=== PATIENT | male | born 1990 | race American Indian/Alaskan Native ===

== ENCOUNTER 2017-06-14 19:29 | Emergency (ER) | payer OTHER ==
[2017-06-14] MEDS ORDERED: Albuterol 6.7 GM Inhaler INH ONE ×2 (19:30→21:33)
[2017-06-14 20:01] VITALS: BP 135/89
--- NOTE | 2017-06-14 21:33 | EDM.PDOC ---
ED HPI GENERAL MEDICAL PROBLEM - General Chief Complaint: Respiratory Problem Stated Complaint: COLD [id number] Time Seen by Provider: 06/14/17 21:26 Source of Information: Reports: Patient History Limitations: Reports: No Limitations - History of Present Illness INITIAL COMMENTS - FREE TEXT/NARRATIVE: Cold symptoms since Thursday with congestion cough and sore throat. No known fever , Took Muccinex last lucas, has not used any other medications, including tylenol or ibuprofen. non smoker. Throat Pain Score (Numeric/FACES): 3 - Related Data Allergies Allergy/AdvReac Type Severity Reaction Status Date / Time No Known Allergies Allergy Verified 05/18/16 13:22 Home Meds: Home Meds . [No Known Home Meds] 07/03/14 [History] Past Medical History - Past Health History Medical/Surgical History: Denies Medical/Surgical History - Past Surgical History GI Surgical History: Reports: Appendectomy Social & Family History - Family History Family Medical History: Noncontributory - Tobacco Use Smoking Status *Q: Never Smoker Years of Tobacco use: 6 Packs/Tins Daily: 0.2 Second Hand Smoke Exposure: No - Recreational Drug Use Recreational Drug Use: No - Living Situation & Occupation Living situation: Reports: with Family Occupation: Employed ED ROS GENERAL - Review of Systems Review Of Systems: ROS reveals no pertinent complaints other than HPI. ED EXAM, GENERAL - Physical Exam Exam: See Below Exam Limited By: No Limitations General Appearance: Alert, Mild Distress Eye Exam: Bilateral Eye: EOMI, PERRL Ears: Normal External Exam, Normal TMs Nose: Normal Inspection, Other (congestion) Head: Atraumatic, Normocephalic Neck: Normal Inspection, Supple. No: Lymphadenopathy (L), Lymphadenopathy (R) Respiratory/Chest: No Respiratory Distress, Lungs Clear, Wheezing (bilateral mid , clears with cough) Cardiovascular: Normal Peripheral Pulses, Regular Rate, Rhythm Back Exam: Full Range of Motion Extremities: Normal Inspection, Normal Range of Motion Neurological: Alert, Oriented, Normal Cognition Psychiatric: Normal Affect, Normal Mood Skin Exam: Warm, Dry, Intact, Normal Color Course - Vital Signs Last Recorded V/S: Last Vital Signs Temp 98.9 F 06/14/17 19:54 Pulse 100 06/14/17 19:54 Resp 16 06/14/17 19:54 BP 135/89 06/14/17 19:54 Pulse Ox 98 06/14/17 19:54 - Orders/Labs/Meds Orders: Active Orders 24 hr Category Date Time Status Chest 2V [CR] Urgent Exams 06/14/17 20:03 Taken CULTURE STREP A CONFIRMATION [RM] Stat Lab 06/14/17 19:50 Results STREP SCRN A RAPID W CULT CONF [RM] Stat Lab 06/14/17 19:50 Results Departure - Departure Time of Disposition: 21:33 Disposition: Home, Self-Care 01 Condition: Good Clinical Impression: Bronchitis - Discharge Information Instructions: Acute Bronchitis, [id number] Additional Instructions: tylenol or ibuprofen for discomfort/fever increase fluid intake continue muccinex per label instructions slat water gargle follow up in clinic next week if not improving - My Orders Last 24 Hours: My Active Orders 06/14/17 19:50 CULTURE STREP A CONFIRMATION [RM] Stat STREP SCRN A RAPID W CULT CONF [RM] Stat 06/14/17 20:03 Chest 2V [CR] Urgent - Assessment/Plan Last 24 Hours: My Active Orders 06/14/17 19:50 CULTURE STREP A CONFIRMATION [RM] Stat STREP SCRN A RAPID W CULT CONF [RM] Stat 06/14/17 20:03 Chest 2V [CR] Urgent
== END 2017-06-14 21:43 | disposition home or self-care (01) ==
LOC: DL.ED 19:29
DX: J40 Bronchitis, not specified as acute or chronic (principal); Z90.49 Acquired absence of other specified parts of digestive tract
CPT/HCPCS: 71020; 87081; 87430; 99283; A9270-GY

== ENCOUNTER 2021-11-05 04:59 | Emergency (ER) | payer OTHER ==
[2021-11-05] MEDS ORDERED: Ketorolac 30 MG/ML SDV IM ONE (05:14)
[2021-11-05 06:12] VITALS: BP 128/92; PULSE 122
== END 2021-11-05 06:33 | disposition home or self-care (01) ==
LOC: DL.ED 04:59
DX: S82.841A Displaced bimalleolar fracture of right lower leg, initial encounter for closed fracture (principal); W00.0XXA Fall on same level due to ice and snow, initial encounter
CPT/HCPCS: 29515; 73600-RT; 73610-RT; 99283-25

== ENCOUNTER 2022-08-12 19:16 | Emergency (ER) | payer SELFPAY ==
[2022-08-12] MEDS ORDERED: Famotidine 20 MG Tab PO ONE (19:17)
[2022-08-12] MEDS ORDERED: Omeprazole 20 MG Cap.CR PO ONE (19:17)
[2022-08-12] MEDS ORDERED: GI Cocktail Oral Solution 30 ML PO ONE (19:37)
[2022-08-12 19:47] VITALS: BP 144/97; PULSE 105
[2022-08-12 20:29] LABS: ANION GAP 12.4 mEq/L (7-13); CHLORIDE,CL 101 mmol/L (98-107); SODIUM,NA 137 mmol/L (136-145)
[2022-08-12 20:30] LABS: ESTIMATED GFR 102 mL/min (>=60)
[2022-08-12] MEDS ORDERED: Omeprazole 20 MG Cap.CR ONE (21:44)
[2022-08-12] MEDS ORDERED: Famotidine 20 MG Tab ONE (21:45)
== END 2022-08-12 21:53 | disposition home or self-care (01) ==
LOC: DL.ED 19:16
DX: K21.9 Gastro-esophageal reflux disease without esophagitis (principal); Z90.49 Acquired absence of other specified parts of digestive tract
CPT/HCPCS: 36415; 80053; 80307; 82150; 83605; 83690; 83735; 83880; 84484; 85025; 86140; 93005; 99284; A9270

== ENCOUNTER 2023-07-18 19:06 | Emergency (ER) | payer SELFPAY ==
[2023-07-18 19:35] VITALS: BP 154/116; PULSE 81
[2023-07-18] MEDS ORDERED: Ketorolac 30 MG/ML SDV IM ONE (20:40)
== END 2023-07-18 21:16 | disposition home or self-care (01) ==
LOC: DL.ED 19:06
DX: S62.366A Nondisplaced fracture of neck of fifth metacarpal bone, right hand, initial encounter for closed fracture (principal); S62.666A Nondisplaced fracture of distal phalanx of right little finger, initial encounter for closed fracture; E66.9 Obesity, unspecified; Z90.49 Acquired absence of other specified parts of digestive tract; F17.200 Nicotine dependence, unspecified, uncomplicated; Z79.899 Other long term (current) drug therapy; W50.0XXA Accidental hit or strike by another person, initial encounter; Z68.32 Body mass index [BMI] 32.0-32.9, adult
CPT/HCPCS: 29125; 73130-RT; 99283